=== PATIENT | female | born 1960 | race African-American/Black ===

== ENCOUNTER 2023-11-25 13:23 | Outpatient (CLI) | payer BC | END 2023-11-25 13:24 | disposition home or self-care (01) | LOC: CSHMAMMO 13:23 | PROVIDERS: ATTEND Internal Medicine Rheumatology | DX: M85.89 Other specified disorders of bone density and structure, multiple sites (principal); Z78.0 Asymptomatic menopausal state | CPT/HCPCS: 77080 ==

== ENCOUNTER 2023-12-12 11:49 | Emergency (ER) | payer BC ==
[2023-12-12] MEDS ORDERED: Ondansetron PF 4 MG/2 ML Vial ONE (12:33)
[2023-12-12 12:52] LABS: #Basophils 0.04 10x3/uL (0.0-0.2); #Eosinphils 0.12 10x3/uL (0.0-0.5); #Monocytes 0.76 10x3/uL (0.0-1.1); #Neutrophils 5.03 10x3/uL (1.5-8.4); %Basophils 0.4 % (0.0-2.0); %Eosinophils 1.3 % (0.0-6.0); %Lymphocytes 36.7 % (18.0-47.0); %Monocytes 8.1 % (0.0-10.0); %Neutrophils 53.4 % (40.0-75.0); Hematocrit 43.3 % (34.9-44.5); Hemoglobin 14.2 g/dL (12.0-15.5); Mean Corpuscular HGB CONC 32.8 g/dL (32.0-36.0); Mean Corpuscular Hemoglobin 27.1 pg (27.0-33.0); Mean Corpuscular Volume 82.6 fL (81.6-98.3); Mean Platelet Volume 11.4 fL (7.4-10.4); Platelet Count 304 10x3/uL (150-450); RBC Distribution Width 14.2 % (11.5-14.5); Red Blood Cell (RBC) Count 5.24 10x6/uL (3.90-5.03); White Blood Cell (WBC) Count 9.4 10x3/uL (3.5-10.5)
[2023-12-12 12:54] LABS: Bilirubin Neg (Negative); Blood, Urine 10 (Negative); Glucose, Urine (Dipstick) Normal (Negative); Ketone, Urine Negative (Negative); Leukocyte 25 (Negative); Nitrite Positive (Negative); Protein, Urine (Dipstick) 15 mg/dl (Neg-Trace); Specific Gravity, Urine 1.025 (1.005-1.030)
[2023-12-12 12:57] LABS: Clarity Slightly Cloudy (Clear)
[2023-12-12 13:02] LABS: CAUTI Indications for Culture Pelvic or flank pain
[2023-12-12 13:02] LABS: ALT (SGPT) 29 U/L (8-55); AST (SGOT) 23 U/L (5-34); Albumin 4.1 g/dL (3.4-4.8); Alkaline Phosphatase 114 U/L (40-110); Anion Gap 15 mmol/L (10-20); BUN (Urea Nitrogen) 16 mg/dL (9.8-20.1); Bilirubin, Total 0.5 mg/dL (0.2-1.2); Calc. Creatinine Clearance 0 mL/min (70-130); Calcium 9.8 mg/dL (7.8-10.44); Carbon Dioxide 25 mmol/L (23-31); Chloride 102 mmol/L (98-107); Estimated GFR 91; Globulin 3.7 g/dL (2.4-3.5); Glucose 100 mg/dL (80-115); Lipase 18 U/L (8-78); Potassium 3.6 mmol/L (3.5-5.1); Protein, Total 7.8 g/dL (5.8-8.1); Sodium 138 mmol/L (136-145)
[2023-12-12 13:03] LABS: Bacteria/HPF 4+ HPF (None Seen); Transitional Epithelial 0-3 HPF (None Seen); Urine Culture Reflex No No
[2023-12-12 13:08] LABS: Troponin I Less than 0.010 ng/mL (< 0.028)
[2023-12-12] MEDS ORDERED: cefTRIAXone (ROCEPHIN) 2 GM VIAL ONE (13:14)
== END 2023-12-12 14:32 | disposition home or self-care (01) ==
LOC: CSHERS 11:49
DX: N39.0 Urinary tract infection, site not specified (principal); R19.7 Diarrhea, unspecified; R11.2 Nausea with vomiting, unspecified; I10 Essential (primary) hypertension; E11.9 Type 2 diabetes mellitus without complications; E78.5 Hyperlipidemia, unspecified; M06.9 Rheumatoid arthritis, unspecified; M35.00 Sjogren syndrome, unspecified
CPT/HCPCS: 36416; 80053; 81001; 83690; 84484; 85025; 87077; 87086; 87186; 93005; 96361; 96365; 96375; J0696; J2405